=== PATIENT | male | born 1975 | race Caucasian/White ===

== ENCOUNTER 2016-04-13 10:51 | Emergency (ER) | payer SELFPAY ==
[~2016-04-13] VITALS: Ht 172.7 cm; Wt 81.8 kg
[2016-04-13] MEDS ORDERED: KETOROLAC TROMETHAMINE 60 MG/2 ML VIAL IM ONE (12:00)
[2016-04-13 13:05] VITALS: BP 144/90
== END 2016-04-13 13:22 | disposition home or self-care (01) ==
LOC: EMS 10:53
DX: S06.0X9A Concussion with loss of consciousness of unspecified duration, initial encounter (principal); S70.01XA Contusion of right hip, initial encounter; S30.0XXA Contusion of lower back and pelvis, initial encounter; S50.311A Abrasion of right elbow, initial encounter; K42.9 Umbilical hernia without obstruction or gangrene; W11.XXXA Fall on and from ladder, initial encounter; Y93.89 Activity, other specified; Y92.89 Other specified places as the place of occurrence of the external cause; Y99.8 Other external cause status
CPT/HCPCS: 70450; 72070; 72100; 72125; 72170; 96372; 99284; J1885